=== PATIENT | female | born 1960 | race Caucasian/White ===

== ENCOUNTER → 2018-11-08 17:56 | Outpatient (CLI) | payer OTHER, SELFPAY ==
[2018-11-08 09:26] VITALS: BMI 21.9
[2018-11-15 09:16] LABS: HPV APTIMA, High Risk Negative (Negative)
--- OUTSIDE RECORDS SUMMARY | 2019-01-11 05:18 | XMS RPT_ITS ---
:1960 Author Organization [facility] Care Team Providers Name Role Phone Toshia Peters Attending Unavailable Primay Care Physicia, Nadia Referring Unavailable Toshia Peters Attending Unavailable Justino Bee Primary Care Unavailable Toshia Peters Referring Unavailable PROBLEMS PROBLEMS DATE TYPE CONDITION / CODE ATTENDING STATUS SOURCE 11/09/2018 Unknown Z12.4 - Toshia Peters Active [facility] Encounter for Community screening for Hospital malignant Repository neoplasm of cervix / Z12.4(ICD-10) PROCEDURES PROCEDURES No Procedure Records FoundRESULTS RESULTS GRADUATE ADVISOR OFFICE VISIT Observed: 11/08/2018 Status: F Source: [place] REPORT 9:57 AM [facility] REPOSITORY [facility] [address] [place] [address]. [address] [place] [address] OFFICE VISIT Date of Service: 11/08/18 MR#: [id number] Acct: [id number] Name: GEOFFREY CAIN Rep #: [id number] : 1960 Provider: WHITNEY Peters Age/Sex: 58/F Location: [facility] [place] Status: Signed Intake Vital Signs11/08/18 Height 5 ft 8 in 11/08/18 Weight: 144 lb 6 oz 11/08/18 Body Mass Index (BMI) 21.9 11/08/18 Blood Pressure 140/90 H Intake Visit Reasons: ANNUAL Records Coordinator Required: No Is patient in pain?: No Allergies povidone-iodine [From Betadine] Allergy (Mild, Verified 11/08/18 09:21) swelling soap [From Betadine] Allergy (Mild, Verified 11/08/18 09:21) swelling sulfamethoxazole [From Bactrim] Allergy (Mild, Verified 11/08/18 09:21) unknown trimethoprim [From Bactrim] Allergy (Mild, Verified 11/08/18 09:21) unknown Medications magnesium 250 mg tablet 250 mg PO DAILY 11/08/18 [History Confirmed 11/08/18] multivitamin tablet 1 tab PO DAILY 11/08/18 [History Confirmed 11/08/18] omega-3 fatty acids 1,000 mg capsule 1,000 mg PO DAILY 11/08/18 [History Confirmed 11/08/18] vitamin B12 500 mcg-folic acid 400 mcg tablet 1 tab PO DAILY 11/08/18 [History Confirmed 11/08/18] Is last menstrual period known: No Post menopausal: No Patient : No : [facility] Abnormal Pap smear of cervix (Acute) Surgical History History of colposcopy (Resolved) Family History Father Diabetes Grandmother Breast cancer Mother Alzheimer disease Social History Smoking Status: Never smoker alcohol intake: never substance use type: does not use caffeine: Yes eating out: rarely or never what type of physical activity do you participate in: walking frequency: 1-2 times per week seatbelt use: always do you feel safe at home: Yes additional social history: - 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 DateName GA/Weeks Outcome Route Bt WeighInfant GeLabor LgtAnesthesiDel LocatProvider FOB t n h a n HPI ANNUAL: Details: GEOFFREY CAIN is a 58 year old who presents for annual exam. Last exam with [place] [facility] 04/2017. Lack of libido, responds with stimulation. Step daughter and children living with them currently. Last PAP: approx 2017 History of abnormal PAP: yes approx 2007 with colp negative, no treatment Last mammogram: 2016 History of abnormal mammogram: no Colon cancer screenin and due 05/2019 ROS Const Constitutional: Denies fatigue, weight gain or weight loss Cardio Card: Denies chest pain Resp Resp: Denies cough or shortness of breath with activity GI GI: Denies abdominal pain, constipation, change in stools, vomiting or bloating : Reports as per HPI; denies urinary frequency, pelvic pain, urinary urgency, vaginal discharge, vaginal itching, urinary incontinence or difficulty urinating Exam Const General: cooperative, healthy appearing, no acute distress, well developed Orientation: alert, oriented to person, oriented to place HENWV Head: normal to inspection Neck Neck: normal visual inspection Thyroid: thyroid normal Lymphatic: no lymphadenopathy noted Chest Breast inspection: normal inspection of the breasts, normal inspection of the axillae Breast palpation: normal palpation of the breasts, normal palpation of the axillae, no axillary lymphadenopathy Resp Effort AND Inspection: normal respiratory effort GI Palpation: soft, nontender, no masses Rectal Exam: deferred External Female Exam: normal external appearance, normal appearance of the urethra Urethra: normal appearance of the urethra, normal palpation Speculum Exam - Vagina: normal appearance of the vagina, normal vaginal discharge Speculum Exam - Cervix: normal appearance of the cervix Bimanual Exam- Vagina AND Uterus: normal bimanual exam, uterine size normal, uterine shape normal, uterus non-tender Bimanual Exam- Adnexa, other: normal adnexae, no adnexal masses, adnexae non-tender, pelvic support normal Pelvic Support: normal Neuro General: alert, oriented x3 Psych Affect: normal affect Assessment AND Plan Problems 1. Encounter for gynecological examination with abnormal finding Z01.411 Plan Completed breast and pelvic exam Reviewed diet and exercise Pap thin prep pap with HPV Declines use of estrogen cream. Discussed lubricants Discussed lack of libido, feels related to extra people in house. Mammogram ordered Colonoscopy due in May 2019 Surgeons info given Bone density na RTO 1 year, prn with problems Toshia Peters PERSONAL FINANCIAL ADVISOR Coding Level of Care Code Off vis,est,prev 40-64yrs Diagnoses Encounter for gynecological examination with abnormal finding Z01.411 Gynecological examination findings: abnormal findings PRESENT 11/08/18 0957 <Electronically signed by Toshia Peters EDITORIAL MANAGER-C> Date Toshia Peters EDITORIAL MANAGER-C Cosigner Signature: Date (if applicable) CC: ALLERGIES ALLERGIES DATE TYPE / CODE NAME / CODE REACTION SEVERITY SOURCE 11/08/2018 Drug soap/[id number] Swelling [facility] Allergy/4160 012(RXNORM) Hospital 55133(SNOMED Repository CT) 11/08/2018 Drug sulfamethoxa Unknown [facility] Allergy/4160 zole/[id number] Hospital 02888(SNOMED 827(RXNORM) Repository CT) 11/08/2018 Drug trimethoprim Unknown [facility] Allergy/4160 /[id number]( Hospital 45988(SNOMED RXNORM) Repository CT) 11/08/2018 Drug povidone-iod Swelling [facility] Allergy/4160 ine/[id number] Hospital 18554(SNOMED 53(RXNORM) Repository CT) ENCOUNTERS ENCOUNTERS ADMIT/DISCHARGE ACCOUNT ADMITTING ENCOUNTER LOCATION SOURCE NUMBER CLASS 11/08/2018 [id number] Ambulatory Stephanie Bruni 8 [facility] ing:[facility]SPEC Repository 11/08/2018/ [id number] Ambulatory BMSBuilding:B Bruni 9 9 [facility] Repository PAYERS PAYERS ENCOUNTER GUARANTOR PAYER SUBSCRIBER SOURCE 11/08/2018 SCOTT Primary GEOFFREY Brown [id number] Insurance:MEDICAL DAVAULTDOB: [facility] [place] Number: Repository [id number]: [phone]) [id number] [phone] () Date:2018-11-08[address] [place] [id number]: 11/08/2018 Secondary NOT GIVENUNK Bruni Insurance:SELF PAY [facility] Number: Effective Repository Date:2018-11-08 11/08/2018 Scott Primary GEOFFREY Cintronoster [id number] Insurance:MEDICAL DAVAULTDOB: [facility] [id number] Number: Repository [id number]: [phone] [id number] [phone] () Date:2018-09-02[address], [place] [address]AG: 11/08/2018 Secondary NOT GIVENUNK Stephanie Insurance:SELF [facility]: Effective Repository Date:2018-11-08
== END ==
PROVIDERS: Family Provider Internal Medicine; Referring Provider Nurse Practitioner Women's Health; Visit Provider Nurse Practitioner Women's Health
DX: Z12.4 Encounter for screening for malignant neoplasm of cervix (principal)
CPT/HCPCS: 87624; 88175; G0145

== ENCOUNTER → 2018-12-23 15:18 | Outpatient (CLI) | payer OTHER, SELFPAY ==
[2018-11-08 09:26] VITALS: BMI 21.9
--- NOTE | 2018-12-23 15:20 | BI_ITS ---
MAMMOGRAPHY - BILATERAL SCREENING REASON FOR EXAM: Female, 58 years old. Routine annual screening examination. PERTINENT HISTORY: Grandmother with breast cancer. TECHNIQUE: Digital bilateral breast jovana (3D mammographic acquisition) in the CC and MLO projections. 2-D mediolateral oblique (MLO) and craniocaudad (CC) views of both breasts were obtained. CAD: Full Field Digital Mammography with Computer Added Detection was performed. COMPARISON: Comparison is made with prior operative examination dated January 26, 2017. FINDINGS: Breast Composition: There are scattered areas of fibroglandular density. There are no dominant masses or suspicious calcifications. No other significant abnormalities are identified. There has been no significant change since the prior study. BI/SCREENING MAMM (CAD), BILAT IMPRESSION: Stable bilateral screening mammogram. Yearly follow-up mammogram recommended. (A) ASSESSMENT CATEGORY: BIRADS Category 1: Negative. A letter regarding these results will be sent to the patient by the facility within 30 days. Approximately 10% of breast cancers are not detected by mammography. A normal mammogram should not delay biopsy of a clinically suspicious abnormality. [id number] Electronically Signed: Kareem Medina, at 8:38 EST , Service support ,
== END ==
PROVIDERS: Family Provider Internal Medicine; Visit Provider Nurse Practitioner Women's Health
DX: Z12.31 Encounter for screening mammogram for malignant neoplasm of breast (principal)
CPT/HCPCS: 77063; 77067

== ENCOUNTER 2019-11-07 08:20 | Day surgery (SDC) | payer OTHER, SELFPAY ==
[2018-11-08 09:26] VITALS: BMI 21.9
[2019-11-07 08:42] VITALS: BP 142/86; PULSE 69; RESP 14; TEMP 36.9; O2SAT 100; BMI 20.7
[2019-11-07] MEDS: Lactated Ringers 1,000 ML 100 ML IV (09:00)
--- NOTE | 2019-11-07 09:53 | HP.PCM_ITS ---
History of Present Illness Date of Admission: 11/07/19 The patient is a 59 year old F presents for screening colonoscopy due to history of colon polyps. Patient's last colonoscopy was in [address] Shaw knee she had a rectal polyp less than 5 mm at that time. Patient denies any family history of colon cancer. Denies any chronic abdominal pain/nausea/vomiting/reflux. Patient has bowel movements about every 2 days denies any blood. Past Medical/Surgical History - Planned Operation Planned Operative Procedure/s: cscope Date of Operative Procedure: 11/07/19 Permit Signed: No S.O.S: No Is This Patient Having a Total Joint: No - Previous Hospitalizations/Surgeries HX Hospitalizations: No HX of Surgeries: cscope Any Problems With Anesthesia: No You/Your Family Experience Fever (Hyperthermia) With Anes: No Cholinesterase deficiency: No - Cardiovascular Hx Chest Pain within Last 2 months: No Hx of Irregular Heartbeat and/or Afib: No Hx Heart Attack: No Hx Congestive Heart Failure: No Hx Rheumatic Fever: No Hx Hypertension: No Hx Internal Defibrillator: No Hx Pacemaker: No Hx Cardiac Catheterization: No Hx Cardiac Surgery/Stents/Etc.: No Hx Stress Test: No HX Edema: No Hx Pain in Legs when Walking/Leg Cramps: No - Respiratory Chronic Cough: No HX of Shortness of Breath: No Hoarseness: No Hx Chronic Obstructive Pulmonary Disease (COPD): No Hx Asthma: No Hx Emphysema: No Hx Sleep Apnea: No Hx Oxygen Use at Home: No Hx Respiratory Tract Infection/Cold (presently): No Do You Snore Loudly (louder than talking or can be heard): No Do You Often Feel Tired/ Fatigued/ Sleepy Dring Daytime?: Yes Has Anyone Observed You Stop Breathing During Sleep?: No Result (for STOP score): Negative Hx Smoking: No Smoking Status: Never smoker - Gastrointestinal Hx Gastroesophageal Reflux: No Hx Gastrointestinal Disorders: No Hx Gastrointestinal Bleed: No Hx Ulcer: No Hx Hiatal Hernia: No Difficulty Chewing/Swallowing: No Recent Onset of Swallowing Problems: No Special diet followed at home: No Hx Unplanned Weight Loss of 20#: No HX Unplanned Weight Gain of 20#: No - Neurological Hx Seizures: No HX Syncope/Blackout Spells/Unconsciousness: No Hx CVA/Stroke: No Hx Transient Ischemic Attacks (TIA): No Hx Multiple Sclerosis: No Hx Parkinson's Disease: No Hx Head/Neck Injury: No Hx Headaches: No Hx Back Injury/Pain: No Recent Onset of Speech Difficulty: No Restless Legs: Yes - compression hose Does patient have nerve stimulator: No Patient instructed to have device shut off: No Rep notified?: No - Blood Disorder Hx Leukemia: No Bleeding Tendencies: No Hx Deep Vein Thrombosis: No Hx High Cholesterol: No Blood Transmitted Disease: No Hx Hepatitis: No Hx Cirrhosis: No Hx Anemia: No Hx Blood Disorders: No - Reproduction : No Is Patient Lactating: No Hx Hysterectomy: No Hx Tubal Ligation: No Are You Post Menopause: Yes - Genitourinary Hx Renal Disease: No - Musculoskeletal Hx Arthritis: No Hx Rheumatoid Arthritis: No Hx Gout: No Recent Onset of an Orthopedic Problem: No - Endocrine Hx Diabetes: No Thyroid Disease: No Hx Steroid Therapy: No - Psycho/Social Hx Substance Use: No Hx Alcohol Use: No Hx Anxiety: Yes - meds in the past Hx Depression: Yes - meds in the past Mental Illness: No Hx Dementia: No - Miscellaneous Hx Cancer: No Recent Exposure to Contagious Disease: No Active MRSA: No Hx of C-Diff: No Any Loose Teeth: No Allergies povidone-iodine [From Betadine] Allergy (Mild, Verified 11/07/19 08:42) swelling soap [From Betadine] Allergy (Mild, Verified 11/07/19 08:42) swelling sulfamethoxazole [From Bactrim] Allergy (Mild, Verified 11/07/19 08:42) unknown trimethoprim [From Bactrim] Allergy (Mild, Verified 11/07/19 08:42) unknown - Discharge Is Pt Admitted From a [facility]sp, or a Senior Care: No Who Could Help: family After D/C, Where Do you Plan to Go: Return Home - Physical Exam Vitals/I&O's: Vital Signs Temp Pulse Resp BP Pulse Ox 98.4 F 69 14 142/86 H 100 11/07/19 08:42 11/07/19 08:42 11/07/19 08:42 11/07/19 08:42 11/07/19 08:42 Oxygen Delivery Method Room Air Weight: 136 lb 3.931 oz Body Mass Index (BMI) 20.7 General: Alert, Oriented x3, Cooperative, No apparent distress HEENT: Atraumatic Lungs: Normal air movement Cardiovascular: Regular rate Abdomen: Soft, Non Tender, Non-Distended Neurological: Cranial nerves II-XII grossly intact Psych/Mental Status: Normal Affect Current Medications Lactated Ringer's () 1,000 mls @ 100 mls/hr IV .Q10H DONTE Last Admin: 11/07/19 09:00 Dose: 100 mls/hr Documented by: Assessment/Plan 59-year-old female with history of colon polyp Surgery Risks - Colonoscopy I discussed with the patient the risks of the procedure: Yes Risks Include but are not Limited To: Risks include but are not limited to: Bleeding, perforation requiring further surgery, inability to complete colonoscopy requiring barium enema. No further questions this time.
[2019-11-07 10:43] VITALS: BP 121/99; BP 142/86; PULSE 58; RESP 16; TEMP 36.8; O2SAT 99
[2019-11-07 10:45] VITALS: BP 117/65; BP 142/86; PULSE 73; RESP 16; O2SAT 98
[2019-11-07 10:50] VITALS: BP 131/84; BP 142/86; PULSE 61; RESP 16; O2SAT 97
[2019-11-07 10:56] VITALS: BP 127/68; BP 142/86; PULSE 62; RESP 16; TEMP 36.3; O2SAT 98
[2019-11-07 11:21] VITALS: BP 142/86
--- NOTE | 2019-11-07 14:18 | OP.COLON_ITS ---
Patient Name: Shahla Roldan Procedure Date: 11/07/2019 10:02 AM Date of : 1960 Age: 59 Procedure: Colonoscopy Indications: High risk colon cancer surveillance: Personal history of colonic polyps Providers: Marisol Rodríguez MD Referring MD: Marisol Rodríguez MD Medicines: Monitored Anesthesia Care Patient Profile: This is a 59 year old female. Last Colonoscopy: 5 years ago. Complications: No immediate complications. Procedure: Pre-Anesthesia Assessment: - Prior to the procedure, a History and Physical was performed, and patient medications and allergies were reviewed. The patient's tolerance of previous anesthesia was also reviewed. The risks and benefits of the procedure and the sedation options and risks were discussed with the patient. All questions were answered, and informed consent was obtained. Prior Anticoagulants: The patient has taken no previous anticoagulant or antiplatelet agents. ASA Grade Assessment: II - A patient with mild systemic disease. After reviewing the risks and benefits, the patient was deemed in satisfactory condition to undergo the procedure. After I obtained informed consent, the scope was passed under direct vision. Throughout the procedure, the patient's blood pressure, pulse, and oxygen saturations were monitored continuously. The Colonoscope was introduced through the anus and advanced to the cecum, identified by appendiceal orifice and ileocecal valve. The colonoscopy was performed without difficulty. The patient tolerated the procedure well. The quality of the bowel preparation was good. Scope In: 10:13:05 AM Scope Withdrawal Time 0 hours 11 minutes 26 seconds Scope Out: 10:35:40 AM Total Procedure Duration Time 0 hours 22 minutes 35 seconds Findings: Hemorrhoids were found on perianal exam. External and internal hemorrhoids were found. The hemorrhoids were Grade I (internal hemorrhoids that do not prolapse). The entire examined colon appeared normal. Impression: - Hemorrhoids found on perianal exam. - External and internal hemorrhoids. - The entire examined colon is normal. - No specimens collected. Recommendation: - Discharge patient to home. - Resume previous diet. - Continue present medications. - Repeat colonoscopy in 10 years for screening purposes. Procedure Code(s): --- Professional --- G0105, PT, Colorectal cancer screening; colonoscopy on individual at high risk Diagnosis Code(s): --- Professional --- Z86.010, Personal history of colonic polyps K64.0, First degree hemorrhoids CPT copyright 2017 [employer]. All rights reserved. The codes documented in this report are preliminary and upon resident surgeon review may be revised to meet current compliance requirements. MD Marisol Brenner MD 11/07/2019 10:45:47 AM This report has been signed electronically. Number of Addenda: 0 Note Initiated On: 11/07/2019 10:02 AM
--- NOTE | 2019-11-07 14:19 | OP.CCLET_ITS ---
11/07/2019 No Primary Care Physician Re : Colonoscopy procedure for Shahla Roldan Dear Care Physician This procedure was performed on Thursday, November 07, 2019. My impressions and recommendations are as follows: Impressions : - Hemorrhoids found on perianal exam. - External and internal hemorrhoids. - The entire examined colon is normal. - No specimens collected. Recommendations : - Discharge patient to home. - Resume previous diet. - Continue present medications. - Repeat colonoscopy in 10 years for screening purposes. My findings are described in the full procedure note, which is enclosed. If I can be of further assistance, please feel free to contact me at Doctor phone number(s): , Work: . Sincerely, MD Marisol Brenner MD 11/07/2019 10:45:47 AM This report has been signed electronically.
== END 2019-11-07 11:23 | disposition home or self-care (01) ==
LOC: EN 08:22 → AC 08:22
PROVIDERS: Referring Provider Surgery; Visit Provider Surgery
PROC: 0DJD8ZZ Inspection of Lower Intestinal Tract, Via Natural or Artificial Opening Endoscopic (ICD-10-PCS; CPT 45378; principal; 2019-11-07 09:25)
DX: Z12.11 Encounter for screening for malignant neoplasm of colon (principal); K64.0 First degree hemorrhoids; Z86.010 Personal history of colon polyps
CPT/HCPCS: 45378; J7120; J2405

== ENCOUNTER → 2020-04-18 | Outpatient (CLI) | payer OTHER, SELFPAY ==
[2018-11-08 09:26] VITALS: BMI 21.9
--- NOTE | 2020-04-18 08:29 | BI_ITS ---
MAMMOGRAPHY - BILATERAL SCREENING REASON FOR EXAM: Female, 60 years old. Routine annual screening examination. PERTINENT HISTORY: Grandmother with breast cancer. TECHNIQUE: Digital bilateral breast teresita (3D mammographic acquisition) in the CC and MLO projections. 2-D mediolateral oblique (MLO) and craniocaudad (CC) views of both breasts were obtained. CAD: Full Field Digital Mammography with Computer Added Detection was performed. COMPARISON: Comparison is made with prior study dated December 23, 2018. FINDINGS: Breast Composition: There are scattered areas of fibroglandular density. There are no dominant masses or suspicious calcifications. No other significant abnormalities are identified. There has been no significant change since the prior study. BI/SCREEN MAMM (CAD) W/TERESITA BILAT IMPRESSION: Stable bilateral screening mammogram. Yearly follow-up mammogram recommended. (A) ASSESSMENT CATEGORY: BIRADS Category 1: Negative. A letter regarding these results will be sent to the patient by the facility within 30 days. Approximately 10% of breast cancers are not detected by mammography. A normal mammogram should not delay biopsy of a clinically suspicious abnormality. [id number] Electronically Signed: Kareem Medina, at 9:40 EDT , Service support ,
== END | disposition home or self-care (01) ==
PROVIDERS: PCP Internal Medicine; Referring Provider Nurse Practitioner Women's Health; Visit Provider Nurse Practitioner Women's Health
DX: R30.0 Dysuria (principal); Z12.31 Encounter for screening mammogram for malignant neoplasm of breast
CPT/HCPCS: 77063; 77067; 87086; 87088; 87186

== ENCOUNTER → 2021-04-23 12:29 | Outpatient (CLI) | payer OTHER, SELFPAY ==
[2020-04-18 09:11] VITALS: BMI 20.7
--- NOTE | 2021-04-23 12:32 | BI_ITS ---
MAMMOGRAPHY - BILATERAL SCREENING REASON FOR EXAM: Female, 61 years old. Routine annual screening examination. PERTINENT HISTORY: Grandmother with breast cancer. TECHNIQUE: Digital bilateral breast teresita (3D mammographic acquisition) in the CC and MLO projections. 2-D mediolateral oblique (MLO) and craniocaudad (CC) views of both breasts were obtained. CAD: Full Field Digital Mammography with Computer Added Detection was performed. COMPARISON: Comparison is made with prior study dated 04/18/2020 and 12/23/2018. FINDINGS: Breast Composition: There are scattered areas of fibroglandular density. There are no dominant masses or suspicious calcifications. No other significant abnormalities are identified. There has been no significant change since the prior study. BI/SCRN MAMM (CAD)W/TERESITA BILAT IMPRESSION: Stable bilateral screening mammogram. Yearly follow-up mammogram recommended. (A) ASSESSMENT CATEGORY: BIRADS Category 1: Negative. A letter regarding these results will be sent to the patient by the facility within 30 days. Approximately 10% of breast cancers are not detected by mammography. A normal mammogram should not delay biopsy of a clinically suspicious abnormality. [id number] Electronically Signed: Kareem Medina MD at 13:25 EDT , Service support ,
== END ==
PROVIDERS: Referring Provider Nurse Practitioner Women's Health; Visit Provider Nurse Practitioner Women's Health
DX: R35.0 Frequency of micturition (principal); Z12.31 Encounter for screening mammogram for malignant neoplasm of breast
CPT/HCPCS: 77063; 77067; 87086; 87088; 87186

== ENCOUNTER → 2022-04-29 | Outpatient (CLI) | payer OTHER, SELFPAY ==
--- NOTE | 2022-04-29 12:35 | BI_ITS ---
MAMMOGRAPHY - BILATERAL SCREENING REASON FOR EXAM: Female, 62 years old. Routine annual screening examination. PERTINENT HISTORY: Grandmother with breast cancer. TECHNIQUE: Digital bilateral breast teresita (3D mammographic acquisition) in the CC and MLO projections. 2-D mediolateral oblique (MLO) and craniocaudad (CC) views of both breasts were obtained. CAD: Full Field Digital Mammography with Computer Added Detection was performed. COMPARISON: Comparison is made with prior study dated 04/23/2021 and 04/18/2020. FINDINGS: Breast Composition: The breasts are heterogeneously dense, which may obscure small masses. There are no dominant masses or suspicious calcifications. No other significant abnormalities are identified. There has been no significant change since the prior study. BI/SCRN MAMM (CAD)W/TERESITA BILAT IMPRESSION: Stable bilateral screening mammogram. Yearly follow-up mammogram recommended. (A) ASSESSMENT CATEGORY: BIRADS Category 1: Negative. A letter regarding these results will be sent to the patient by the facility within 30 days. Approximately 10% of breast cancers are not detected by mammography. A normal mammogram should not delay biopsy of a clinically suspicious abnormality. [id number] Electronically Signed: Kareem Medina MD at 13:30 EDT ,
== END | disposition home or self-care (01) ==
LOC: OPBI 12:33
PROVIDERS: Referring Provider Nurse Practitioner Women's Health; Visit Provider Nurse Practitioner Women's Health
DX: Z12.31 Encounter for screening mammogram for malignant neoplasm of breast (principal); Z80.3 Family history of malignant neoplasm of breast
CPT/HCPCS: 77063; 77067

== ENCOUNTER → 2022-05-01 | Outpatient (CLI) | payer OTHER, SELFPAY ==
[2022-05-01 08:28] LABS: Cholesterol 189 mg/dL (200); Glucose 103 mg/dL (74-106); High Density Lipoprotein 74 mg/dL; Thyroid Stim Hormone (TSH) 1.97 uIU/mL (0.358-3.74); Triglycerides 59 mg/dL; Very Low Density Lipoprotein 12 mg/dL (5-40)
== END | disposition home or self-care (01) ==
PROVIDERS: Referring Provider Nurse Practitioner Women's Health; Visit Provider Nurse Practitioner Women's Health
DX: Z13.1 Encounter for screening for diabetes mellitus (principal); Z13.220 Encounter for screening for lipoid disorders; Z13.29 Encounter for screening for other suspected endocrine disorder; Z13.21 Encounter for screening for nutritional disorder
CPT/HCPCS: 36415; 80061; 82306; 82947; 84443

== ENCOUNTER → 2022-05-27 | Outpatient (CLI) | payer OTHER, SELFPAY | END | disposition home or self-care (01) | LOC: LABSPEC 11:07 | PROVIDERS: Visit Provider Nurse Practitioner Women's Health | DX: R30.0 Dysuria (principal) | CPT/HCPCS: 87086; 87088; 87186 ==

== ENCOUNTER → 2022-11-11 | Outpatient (CLI) | payer OTHER, SELFPAY ==
[2022-11-11 12:15] LABS: Absolute Lymphocyte Count 1.49 X10^3/uL (0.83-4.51); Absolute Neutrophil Count 2.9 X10^3/uL (2.0-7.7); Basophil# 0.04 X10^3/uL; Basophil% 0.8 % (0-1); Eosinophil# 0.06 X10^3/uL; Eosinophils% 1.2 % (0-5); Hematocrit 43.1 % (37-47); Hemoglobin 14.5 g/dL (12.0-15.0); Lymphocyte # 1.49 X10^3/ul (0.83-4.51); Lymphocyte % 29.4 % (19-41); Mean Corp Hgb Conc 33.6 g/dL (32-36); Mean Corpuscular Hgb 32.2 pg (27.0-32.0); Mean Corpuscular Volume 95.8 fL (81-99); Mean Platelet Vol. 9.1 fl (6.2-12.0); Monocyte# 0.52 X10^3/uL; Monocyte% 10.3 % (0-10); NRBC Flagged by Analyzer 0 % (0-5); Neutrophil # 2.94 X10^3/uL (2.7-7.7); Neutrophil % 58.1 % (47-70); Platelet Count 276 K/mm3 (150-450); RBC Distribution Width CV 12.1 % (11.6-14.6); RBC Distribution Width SD 42.5 fl (35.1-43.9); White Blood Count 5.1 K/mm3 (4.4-11.0)
[2022-11-11 12:50] LABS: AST(SGOT) 16 U/L (15-37); Alanine Aminotransfer ALT/SGPT 15 U/L (13-56); Albumin, Serum 3.8 g/dL (3.2-5.0); Alkaline Phosphatase 84 U/L (45-117); Anion Gap 7 (5-15); BUN 18 mg/dL (7-18); BUN/Creat Ratio 19.8 RATIO (10-20); Calcium,Total 8.9 mg/dL (8.5-10.1); Chloride 108 mmol/L (98-107); Creatinine, Serum 0.91 mg/dL (0.55-1.02); EST Glomerular Filtration Rate 66 mL/min (>60); Est Glom Filt Rate - Afr Amer 80 mL/min (>60); Globulin 3.9 g/dL (2.2-4.2); Glucose 106 mg/dL (74-106); Potassium 3.8 mmol/L (3.5-5.1); Protein, Total 7.7 g/dL (6.4-8.2); Sodium Level 141 mmol/L (136-145); Thyroid Stim Hormone (TSH) 1.84 uIU/mL (0.358-3.74)
== END | disposition home or self-care (01) ==
LOC: BIMLAB 09:52
PROVIDERS: PCP Internal Medicine; Referring Provider Internal Medicine; Visit Provider Internal Medicine
DX: F51.04 Psychophysiologic insomnia (principal)
CPT/HCPCS: 36415; 80053; 84443; 85025

== ENCOUNTER → 2022-12-23 | Outpatient (CLI) | payer OTHER, SELFPAY ==
[2022-12-23 12:35] LABS: Color, Urine Straw (Yellow); Glucose, Dipstick Normal (Normal); Ketone-Dipstick Negative (Negative); Leukocyte Esterase-Dipstick 100 /ul (Negative); Nitrite-Dipstick Negative (Negative); Occult Blood-Urine 10 /ul (Negative); Protein-Dipstick Negative (Negative); Urine Bilirubin Dipstick Negative (Negative); Urine Clarity Clear (Clear); Urine Urobilinogen Normal (Normal)
== END | disposition home or self-care (01) ==
LOC: LABSPEC 10:43
PROVIDERS: PCP Internal Medicine; Referring Provider Internal Medicine; Visit Provider Internal Medicine
DX: N39.0 Urinary tract infection, site not specified (principal)
CPT/HCPCS: 81002; 87086; 87088; 87186

== ENCOUNTER → 2023-05-04 | Outpatient (CLI) | payer OTHER, SELFPAY ==
--- NOTE | 2023-05-04 08:31 | BI_ITS ---
MAMMOGRAPHY - BILATERAL SCREENING 3-D TOMOSYNTHESIS REASON FOR EXAM: Female, 63 years old. Routine screening PERTINENT HISTORY: Grandmother with breast cancer.. TECHNIQUE: 2-D mammograms and 3-D Tomosynthesis of the breast (s) were performed. CAD was performed. COMPARISON: 04/23/2021 FINDINGS: The breast composition is heterogeneously dense that can obscure small breast masses. Scattered benign calcifications are seen. No dense spiculated masses or suspicious microcalcifications are identified. No architectural distortion is identified. There is no skin thickening or retraction. There has been no significant change since the prior study. BI/SCRN MAMM (CAD)W/TERESITA BILAT IMPRESSION: No mammographic signs of malignancy. Routine yearly mammograms recommended. ASSESSMENT CATEGORY: BIRADS Category 2: Benign. A letter regarding these results will be sent to the patient by the facility within 30 days. FOLLOW UP RECOMMENDATION: Yearly follow up mammogram recommended. (A) Approximately 10% of breast cancers are not detected by mammography. A normal mammogram should not delay biopsy of a clinically suspicious abnormality. Electronically Signed: Sergey Bass MD at 9:41 EDT ,
== END | disposition home or self-care (01) ==
LOC: OPBI 08:30
PROVIDERS: PCP Internal Medicine; Referring Provider Nurse Practitioner Women's Health; Visit Provider Nurse Practitioner Women's Health
DX: Z12.31 Encounter for screening mammogram for malignant neoplasm of breast (principal)
CPT/HCPCS: 77063; 77067

== ENCOUNTER → 2023-08-20 | Outpatient (CLI) | payer OTHER, SELFPAY ==
[2023-08-20 13:16] LABS: Bacteria 0 SEEN /hpf (None Seen); Mucous, Urine 0 SEEN /hpf (<or=2+); Red Blood Cells-Urine 0 SEEN /hpf (0-5); White Blood Cells 0 SEEN /hpf (0-5)
[2023-08-20 15:15] LABS: Color, Urine Yellow (Yellow); Glucose, Dipstick Normal (Normal); Ketone-Dipstick Negative (Negative); Leukocyte Esterase-Dipstick 25 /ul (Negative); Nitrite-Dipstick Negative (Negative); Occult Blood-Urine 10 /ul (Negative); Protein-Dipstick Negative (Negative); Urine Bilirubin Dipstick Negative (Negative); Urine Clarity Clear (Clear); Urine Urobilinogen Normal (Normal)
[2023-08-20 15:40] LABS: Squamous Epithelial Cells - UA 0-5 SEEN /hpf (5-10)
== END | disposition home or self-care (01) ==
LOC: LABSPEC 13:14
PROVIDERS: PCP Internal Medicine; Visit Provider Internal Medicine
DX: R30.0 Dysuria (principal)
CPT/HCPCS: 81001; 87086; 87088

== ENCOUNTER → 2024-05-31 | Outpatient (CLI) | payer OTHER, SELFPAY ==
--- NOTE | 2024-05-31 07:33 | BI_ITS ---
MAMMOGRAPHY - BILATERAL SCREENING REASON FOR EXAM: Female, 64 years old. Routine annual screening examination. PERTINENT HISTORY: Grandmother with breast cancer. TECHNIQUE: Digital bilateral breast teresita (3D mammographic acquisition) in the CC and MLO projections. 2-D mediolateral oblique (MLO) and craniocaudad (CC) views of both breasts were obtained. CAD: Full Field Digital Mammography with Computer Added Detection was performed. COMPARISON: Comparison is made with prior study dated May 04, 2023 and April 29, 2022. FINDINGS: Breast Composition: The breasts are heterogeneously dense, which may obscure small masses. There are no dominant masses or suspicious calcifications. No other significant abnormalities are identified. There has been no significant change since the prior study. BI/SCRN MAMM (CAD)W/TERESITA BILAT IMPRESSION: Stable bilateral screening mammogram. Yearly follow-up mammogram recommended. (A) ASSESSMENT CATEGORY: BIRADS Category 1: Negative. A letter regarding these results will be sent to the patient by the facility within 30 days. Approximately 10% of breast cancers are not detected by mammography. A normal mammogram should not delay biopsy of a clinically suspicious abnormality. [id number] Electronically Signed: Kareem Medina MD at 8:30 EDT ,
[2024-06-04 10:13] LABS: HPV APTIMA, High Risk Negative (Negative)
== END | disposition home or self-care (01) ==
PROVIDERS: PCP Internal Medicine; Referring Provider Nurse Practitioner Women's Health; Visit Provider Nurse Practitioner Women's Health
DX: Z12.31 Encounter for screening mammogram for malignant neoplasm of breast (principal); Z12.4 Encounter for screening for malignant neoplasm of cervix
CPT/HCPCS: 77063; 77067; 87624; 88175; G0145

== ENCOUNTER → 2025-06-07 | Outpatient (CLI) | payer MEDICARE, SELFPAY ==
--- NOTE | 2025-06-07 07:45 | BI_ITS ---
EXAM: SCRN MAMM (CAD)W/TERESITA BILAT DATE: 06/07/2025 CLINICAL HISTORY: F, Age 65 y/o , SCREEN FOR BREAST CANCER TECHNIQUE: SCRN MAMM (CAD)W/TERESITA BILAT COMPARISON: Prior exam(s) dated May 31, 2024.. FINDINGS: TISSUE DENSITY: The breasts are heterogeneously dense, which may obscure small masses. Bilateral Breast Mammographic Findings: No significant masses, calcifications or other abnormalities are identified. No suspicious masses, areas of developing architectural distortion, or suspicious calcifications. There has been no significant interval change. BI/SCRN MAMM (CAD)W/TERESITA BILAT IMPRESSION: Stable examination. OVERALL FINAL ASSESSMENT BI-RADS 1: NEGATIVE. RECOMMENDATION: Routine annual follow-up in 1 Year A letter with findings and recommendations will be mailed to the patient. Reading Location: [id number]
--- OUTSIDE RECORDS SUMMARY | 2025-06-07 08:03 | XMS RPT_ITS | CCD ---
Author Organization [facility] Care Team Providers Care Director Inpatient Headache Program Name Role Phone Care Physician, No Primary Primary Care Provider Unavailable Care Physician, No Primary Referring Provider Un available Fran CLOUD ADMINISTRATOR, CLOUD ADMINISTRATOR-C Toshia Attending Provider [phone] Care Physician, No Primary Primary Care Provider Unavailable Care Physician, No Primary Referring Provider Un available Dr. Pretty Montaño Attending Provider [phone] Care Physician, No Primary Primary Care Provider Unavailable Care Physician, No Primary Referring Provider Un available Dr. Pretty Montaño Attending Provider [phone] Dr. Pretty Montaño Primary Care Provider Dr. Pretty Montaño Referring Provider [phone] Dr. Pretty Montaño Primary Care Provider Dr. Pretty Montaño Referring Provider [phone] Fran CLOUD ADMINISTRATOR, WHITNEY-C Toshia Attending Provider Dr. Pretty Montaño Primary Care Provider Dr. Pretty Montaño Referring Provider [phone] Fran CLOUD ADMINISTRATOR, WHITNEY-C Toshia Attending Provider Dr. Pretty Montaño Attending Provider [phone] Chanell Harkins Attending Unavailable Pretty Montaño Primary Care Unavailable Pretty Montaño Referring Unavailable Fran CLOUD ADMINISTRATORToshia Referring Unavailable Pretty Montaño Primary Care Unavailable Fran CLOUD ADMINISTRATORToshia Attending Unavailable Allergies Allergy Classification Reported Allergen(s) Allergy Type Date of Onset Reaction(s) Facility (7 sources) Povidone-Iodine Drug Allergy 2 [facility] (7 sources) Sulfamethoxazole Drug Allergy 2 unknown [facility] (7 sources) Trimethoprim Drug Allergy 2 unknown [facility] (8 sources) soap; Translations: [soap] Allergy to substance 2 swelling [facility] (1 source) Povidone-Iodine Drug Allergy 4 [facility] (1 source) Sulfamethoxazole Drug Allergy 4 [facility] (1 source) Trimethoprim Drug Allergy 4 [facility] Medications Current Medications Medication Drug Class(es) Dates Sig (Normalized) Sig (Original) Lacto No.73-Qdccte-Hvo-La rch (Women's Probiotic) 25B cell-25B cell-50 mg capsule (4 sources) Start: 11-11-2022 take 1 capsule by mouth once daily Lacto No.28-Pudrvp-Mrq-L arch (Women's Probiotic) 25B cell-25B cell-50 mg capsule Active 1 CAP PO DAILY November 11, 2022 1:00am Start: 11-11-2022 take 1 capsule by mo [facility] once daily Lacto No.32-Tqzbhu-Wmt-Larch (Women's Probiotic) 25B cell-25B cell-50 mg capsule Active 1 CAP PO DAILY November 11, 2022 12:00am methylcellulose 500 mg oral tablet (1 source) Start: 08-20-2023 take 1 tablet by mouth once daily Methylcellulose (Laxative) (Citrucel) 500 mg tablet Active 500 MG PO DAILY August 19, 2023 11:00pm Multivitamin preparation (7 sources) Start: 11-08-2018 take 1 tablet by mouth once daily Multivitamin Active 1 TABLET PO DAILY November 08, 2018 12:00am Start: 11-08-2018 [facility] Multivitamin Active 1 TABLET PO DAILY November 08, 2018 1:00am traZODone hydrochloride 50 mg oral tablet (6 sources) Serotonin Reuptake Inhibitor Start: 11-11-2022 End: 01-28-2023 take 25 mg by mouth at bedtime Trazodone Active 25 MG PO AT BEDTIME January 28, 2023 10:14am Completed/Discontinued Medications Medication Drug Class(es) Dates Sig (Normalized) Sig (Original) cephalexin 500 mg oral capsule (4 sources) Cephalosporin Antibacterial Start: 07-09-2022 End: 07-16-2022 take 500 mg by mouth every twelve hours Cephalexin Discontinued 500 MG PO Q12H 14 7 July 08, 2022 11:00pm July 15, 2022 11:10pm folic acid 0.4 mg / vitamin b12 0.5 mg oral tablet (7 sources) Vitamin B12 Start: 11-08-2018 End: 04-23-2021 take 1 tablet by mouth once daily Vitamin D05-Cdplg Acid Discontinued 1 TABLET PO DAILY November 08, 2018 12:00am April 23, 2021 12:05pm Ginkgo Biloba (14 sources) Start: 04-29-2022 End: 11-11-2022 take 40 mg by mouth once daily Ginkgo Biloba Discontinued 40 MG PO DAILY April 29, 2022 12:00am November 11, 2022 10:05am give with meal/snack Start: 04-29-2022 End: 11-11-2022 take 40 mg by mouth once daily Ginkgo Biloba Discontin ued 40 MG PO DAILY April 28, 2022 11:00pm November 11, 2022 9:05am give with meal/snack Start: 04-29-2022 take 40 mg by mouth once daily Ginkgo Biloba Active 40 MG PO DAILY April 29, 2022 12:00am give with meal/snack Start: 11-02-2019 End: 04-23-2021 take 500 mg by mouth once daily Ginkgo Biloba Discontinued 500 MG PO DAILY November 02, 2019 12:00am April 23, 2021 12:05pm Start: 11-02-2019 End: 04-23-2021 take 500 mg by mouth once daily Ginkgo Biloba Discontinued 500 MG PO DAILY November 02, 2019 1:00am April 23, 2021 1:05pm hydrOXYzine pamoate 50 mg oral capsule (7 sources) Antihistamine Start: 04-29-2022 End: 11-11-2022 take 50 mg by mouth at bedtime Hydroxyzine Pamoate Discontinued 50 MG PO AT BEDTIME April 28, 2022 11:00pm November 11, 2022 9:05am nitrofurantoin, macrocrystals 100 mg oral capsule (5 sources) Nitrofuran Antibacterial Start: 05-27-2022 End: 06-03-2022 take 100 mg by mouth twice daily at mealtime Nitrofurantoin Macrocrystal Discontinued 100 MG PO TWICE A DAY 14 7 May 26, 2022 11:00pm June 02, 2022 11:04pm administer with food (meal or snack) nitrofurantoin, macrocrystals 25 mg / nitrofurantoin, monohydrate 75 mg oral capsule (17 sources) Nitrofuran Antibacterial Start: 12-23-2022 End: 12-28-2022 take 1 capsule by mouth every twelve hours at mealtime Nitrofurantoin Monohyd/M-Cryst (Macrobid) 100 mg capsule Discontinued 100 MG PO Q12H 10 December 23, 2022 12:00am December 28, 2022 12:04am must administer with a meal/food Start: 04-23-2021 End: 04-30-2021 take 1 capsule by mouth twice daily at mealtime Nitrofurantoin Monohyd/M-Cryst (Macrobid) 100 mg capsule Discontinued 100 MG PO TWICE A DAY 14 7 April 22, 2021 11:00pm April 29, 2021 11:01pm must administer with a meal/food Start: 04-18-2020 End: 04-25-2020 take 1 capsule by mouth twice daily at mealtime Nitrofurantoin Monohyd/M-Cryst (Macrobid) 100 mg capsule Discontinued 100 MG PO TWICE A DAY 14 April 17, 2020 11:00pm April 24, 2020 11:02pm must administer with a meal/food prasterone 25 mg oral capsule (7 sources) Start: 11-02-2019 End: 04-18-2020 take 25 mg by mouth once daily Prasterone (Dhea) Discontinued 25 MG PO DAILY November 02, 2019 12:00am April 18, 2020 8:10am RHODIOLA ROSEA EXTRACT (4 sources) Start: 11-11-2022 End: 08-20-2023 RHODIOLA ROSEA EXTRACT Discontinued PO DAILY November 11, 2022 12:00am August 20, 2023 12:01pm Start: 11-11-2022 RHODIOLA ROSEA EXTRACT Active PO DAILY November 11, 2022 1:00am Start: 11-11-2022 RHODIOLA ROSEA EXTRACT Active PO DAILY November 11, 2022 12:00am Vit V-Rdlvchiz-Iix-Calcium-D 3 (7 sources) Start: 04-23-2021 End: 06-25-2023 Vit C-Dkaqrwjs-Qch-Calcium-D 3 Discontinued EACH PO April 22, 2021 11:00pm June 25, 2023 7:53am Start: 04-23-2021 Vit C-Multivit -Zdv-Ehkrbjo-R7 Active EACH PO April 22, 2021 11:00pm Start: 04-23-2021 Vit C-Multivit -Lby-Agvahlg-Z3 Active EACH PO April 23, 2021 12:00am Problems Problem Classification Problem Date Documented Da te Episodic/Chronic Administrative/social admission (2 sources) Persons encountering health services in other specified circumstances; Translations: [Other reasons for seeking consultation] 11-11-2022 Episodic Anxiety disorders (14 sources) Anxiety; Translations: [Anxiety disorder, unspecified] Chronic Genitourinary symptoms and ill-defined conditions (1 source) Dysuria; Translations: [Dysuria] 08-20-2023 Episodic Immunizations and screening for infectious disease (2 sources) Encounter for immunization; Translations: [Need for prophylactic vaccination and inoculation against unspecified single disease] 11-11-2022 Episodic Menopausal disorders (10 sources) Atrophic vaginitis; Translations: [Postmenopausal atrophic vaginitis] Chronic Miscellaneous mental health disorders (4 sources) Psychophysiologic insomnia; Translations: [Insomnia, unspecified] 11-11-2022 Chronic Mood disorders (4 sources) Mild depression; Translations: [Depression with somatization] 11-11-2022 Chronic Other gastrointestinal disorders (1 source) Constipation, unspecified; Translations: [Constipation, unspecified] 08-20-2023 Episodic Other screening for suspected conditions (not mental disorders or infectious disease) (1 source) Encounter for screening mammogram for malignant neoplasm of breast; Translations: [Encounter for screening mammogram for malignant neoplasm of breast] Onset: Episodic Residual codes; unclassified (1 source) Family history of epilepsy and other diseases of the nervous system; Translations: [Family history of other neurological diseases] 06-25-2023 Episodic Urinary tract infections (4 sources) Urinary tract infection, site not specified; Translations: [Urinary tract infection, site not specified] Episodic Results Test Name Value Interpretation Reference Range Facility [facility] Office Visit Reporton 07-04-2024 [facility] Office Visit Report [facility] [address] [place] [address], [address] [place] [address] OFFICE VISIT Date of Service: 07/04/24 MR#: [id number] Acct: [id number] Name: GEOFFREY CAIN Rep #: [id number] : 1960 Provider: Dr. Chanell weaver MD Age/Sex: 64/F Location[place] [facility] [place] Status: Signed Intake Vital Signs 05/31/24 08:02 07/04/24 08:56 Height 5 ft 8 in 5 ft 8 in Weight: 149 lb BMI 22.6 BP 144/82 H Intake Visit Reasons: 4 W FU Behavior Interventionist Required: No Is patient in pain?: No Allergies povidone-iodine (From Betadine) Allergy (Mild, Verified 07/04/24 09:00) swelling soap (From Betadine) Allergy (Mild, Verified 07/04/24 09:00) swelling sulfamethoxazole (From Bactrim) Allergy (Mild, Verified 07/04/24 09:00) unknown trimethoprim (From Bactrim) Allergy (Mild, Verified 07/04/24 09:00) unknown Medications ???Medication ???Instructions ???Recorded ???Confirmed ???Type multivitamin 1 tab PO DAILY 11/08/18 07/04/24 History estradiol 0.01% (0.1 mg/gram) See Rx Instructions vaginal 05/31/24 07/04/24 Rx vaginal cream .COMPLEX #42.5 grams psyllium husk 0.4 gram capsule 0.4 g PO DAILY 05/31/24 07/04/24 History (Fiber (psyllium husk)) citalopram 20 mg tablet 20 mg PO DAILY #30 tabs 07/04/24 07/04/24 Rx Patient : No : No PFSH Medical History Recurrent UTI Skin carcinoma Abnormal Pap smear of cervix Surgical History Surgical procedure on lower extremity within past 6 months History of colposcopy Family History Father Diabetes Grandmother Breast cancer Mother Alzheimer disease Diabetes Sister Diabetes Social History household members: spouse current occupational status: retired 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 she has had an improvement in symptoms but still has breakthrough, but she was only taking 10 mg. she is open to increasing. she is takign it at night, no side effects. she denies any side effects of the estradiol, has less dryness. History 4 Elective abortions Hx Para 4 Spontaneous abortions Hx # Term Pregnancies Ectopic pregnancies Hx # Pregnancies Multiple births # of living children Past Pregnancies Del. Date Name GA/Weeks Outcome Route Bth Weight Gen [facility] F[facility] Unknown Gregorio-1985 Unknown Waldemar-1987 Unknown [id number] Unknown Armando-1993 ROS Const Constitutional: Denies fatigue, fever(s), headache(s), increased appetite, poor appetite, weight gain or weight loss GI GI: Reports as per HPI; Denies abdominal pain, constipation, nausea or vomiting : Reports as per HPI Exam Const General: cooperative, healthy appearing, comfortable, no acute distress and well developed Orientation: alert HENMT Head: normal to inspection and normocephalic Ears: hearing grossly normal bilaterally and external ears normal Nose: external nose normal and nares normal Face and sinus: normal facial exam Neck Neck: normal visual inspection, no lymphadenopathy and trachea midline Thyroid: thyroid normal Resp Effort Inspection: normal respiratory effort Musc Other: gross motor intact no deficits, full bilateral strength Skin General: no rashes or lesions noted Neuro Motor: muscle tone normal throughout Coding Level of Care Code Off vis,est,level 3 Diagnoses Anxiety F41.9 Atrophic vaginitis N95.2 Assessment and Plan Assessment and Plan (1) Anxiety: Status: Acute Comment: celexa (2) Atrophic vaginitis: Status: Acute Comment: estradiol cream Medications: New citalopram 20 mg PO DAILY 30 tabs 12RF Plan increased to 20 mg Problem list updated and treatment plans were reviewed with the patient and relevant educational handouts given. See problem list details for specific plan information. 07/04/24918 Date Chanell Mcgregor Signature: Date (if applicable) CC: Normal [facility] Basophil percentageOrdered B y: Pretty Montaño on 08-20-2023 Basophil percentage 0 SEEN /hpf 0-5 [facility] Bilirubin Test strip Ql (U)O rdered By: Pretty Montaño on 08-20-2023 Bilirubin Ql (U) Negative Negative [facility] Culture, urineOrdered By: Juan R Montaño on 08-20-2023 Bacteria identified Cx Nom (U) Positive [facility] Ketones Test strip Ql (U)Ord ered By: Pretty Montaño on 08-20-2023 Ketones Ql (U) Negative Negative [facility] Mucus LM Ql (Urine sed)Order ed By: Pretty Montaño on 08-20-2023 Mucus Ql (Urine sed) 0 SEEN /hpf [facility] Nitrite Test strip Ql (U)Ord ered By: Pretty Montaño on 08-20-2023 Nitrite Ql (U) Negative Negative [facility] Protein Test strip Ql (U)Ord ered By: Pretty Montaño on 08-20-2023 Protein Ql (U) Negative Negative [facility] Squamous epithelial cells de tection in urine sediment by light microscopyOrdered By: Pretty Montaño on 08-20-2023 Epithelial cells.squamous LM Ql (Urine sed) 0-5 SEEN /hpf 5-10 [facility] Urine blood detectionOrdered By: Pretty Montaño on 08-20-2023 RBC Ql (U) 10 /ul Negative [facility] RBC Ql (U) 0 SEEN /hpf 0-5 [facility] Urine clarityOrdered By: Jose Montaño on 08-20-2023 Clarity (U) Clear Clear [facility] Urine color determinationOrd ered By: Pretty Montaño on 08-20-2023 Color (U) Yellow Yellow [facility] Urine glucose detectionOrder ed By: Pretty Montaño on 08-20-2023 Glucose Ql (U) Normal mg/dl Normal [facility] Urine leukocyte esterase det ection by dipstickOrdered By: Pretty Montaño on 08-20-2023 Leukocyte esterase Test strip Ql (U) 25 /ul Negative [facility] Urine pHOrdered By: Pretty ricks on 08-20-2023 pH (U) 6.0 [pH] 5.0 - 8.0 [facility] Urine sediment bacteria coun t by microscopy (number/high power field)Ordered By: Pretty Montaño on 08-20-2023 Bacteria LM.HPF (Urine sed) [#/Area] 0 /[HPF] None Seen [facility] Urine specific gravity measu rementOrdered By: Pretty Montaño on 08-20-2023 Specific gravity (U) [Rel density] 1.010 1.002-1.030 [facility] Urobilinogen Auto test strip Ql (U)Ordered By: Pretty Montaño on 08-20-2023 Urobilinogen Ql (U) Normal mg/dl Normal [facility] Culture, urineOrdered By: Dr Jose Montaño on 12-25-2022 Bacteria identified Cx Nom (U) Presumptive E. coli [facility] Bilirubin Test strip Ql (U)O rdered By: Dr. Montaño on 12-23-2022 Bilirubin Ql (U) Negative Negative [facility] Ketones Test strip Ql (U)Ord ered By: Dr. Montaño on 12-23-2022 Ketones Ql (U) Negative Negative [facility] Laboratory - Chemistry and C hemistry - challengeon 12-23-2022 Bilirubin Ql (U) Negative [facility] Glucose Ql (U) Negative [facility] Ketones Ql (U) Negative [facility] pH (U) 5.0 [pH] [facility] Specific gravity (U) [Rel density] 1.005 [facility] Urobilinogen (U) [Mass/Vol] Negative [facility] Laboratory - Hematology and Cell countson 12-23-2022 Hemoglobin Ql (U) Trace [facility] Laboratory - Specimen inform ationon 12-23-2022 Clarity (U) Clear [facility] Color (U) Colorless [facility] Laboratory - Urinalysison Nitrite Ql (U) Negative [facility] Protein Ql (U) Negative [facility] Nitrite Test strip Ql (U)Ord ered By: Dr. Montaño on 12-23-2022 Nitrite Ql (U) Negative Negative [facility] No Panel Informationon 12-23 Urine Leukocytes Positive [facility] Urine Non-Hemolyzed Blood Trace [facility] Protein Test strip Ql (U)Ord ered By: Dr. Montaño on 12-23-2022 Protein Ql (U) Negative Negative [facility] Urine blood detectionOrdered By: Dr. Montaño on 12-23-2022 RBC Ql (U) 10 /ul Negative [facility] Urine clarityOrdered By: Dr. Montaño on 12-23-2022 Clarity (U) Clear Clear [facility] Urine color determinationOrd ered By: Dr. Montaño on 12-23-2022 Color (U) Straw Yellow [facility] Urine glucose detectionOrder ed By: Dr. Montaño on 12-23-2022 Glucose Ql (U) Normal mg/dl Normal [facility] Urine leukocyte esterase det ection by dipstickOrdered By: Dr. Montaño on 12-23-2022 Leukocyte esterase Test strip Ql (U) 100 /ul Negative [facility] Urine pHOrdered By: Dr. Marilynn valdes on 12-23-2022 pH (U) 7.0 [pH] 5.0 - 8.0 [facility] Urine specific gravity measu rementOrdered By: Dr. Montaño on 12-23-2022 Specific gravity (U) [Rel density] 1.010 1.002-1.030 [facility] Urobilinogen Auto test strip Ql (U)Ordered By: Dr. Montaño on 12-23-2022 Urobilinogen Ql (U) Normal mg/dl Normal [facility] Absolute lymphocyte countOrd ered By: Dr. Montaño on 11-11-2022 Lymphocytes Auto (Unsp spec) [#/Vol] 1.49 10*3/uL 0.83-4.51 [facility] Basophil percentageOrdered B y: Dr. Montaño on 11-11-2022 Basophils/100 WBC (Bld) 0.8 % 0-1 [facility] Bilirubin [Mass/Vol] 1.20 mg/dL 0.20-1.00 [facility] Comment on above: For patients on eltr ombopag therapy, use of Dimension Aguilar TBIL is not recommended. Chloride [Moles/Vol] 108 mmol/L 98-107 [facility] Eosinophils/100 WBC (Bld) 1.2 % 0-5 [facility] Glucose [Mass/Vol] 106 mg/dL 74-106 [facility] Comment on above: Fasting Glucose resu lt from 100 to 125 mg/dL suggests IMPAIRED HOMEOSTASIS per A.D.A. criteria. Neutrophils (Bld) [#/Vol] 2.9 10*3/uL 2.0-7.7 [facility] Neutrophils/100 WBC (Bld) 58.1 % 47-70 [facility] Potassium [Moles/Vol] 3.8 mmol/L 3.5-5.1 [facility] Protein [Mass/Vol] 7.7 g/dL 6.4-8.2 [facility] Sodium [Moles/Vol] 141 mmol/L 136-145 [facility] WBC (Bld) [#/Vol] 5.1 10*3/uL 4.4-11.0 [facility] Blood erythrocytes count (nu mber/volume)Ordered By: Dr. Montaño on 11-11-2022 RBC (Bld) [#/Vol] 4.50 10*6/uL 4.2-5.4 [facility] Blood hemoglobin measurement (mass/volume)Ordered By: Dr. Montaño on 11-11-2022 Hemoglobin (Bld) [Mass/Vol] 14.5 g/dL 12.0-15.0 [facility] Blood lymphocytes/100 leukoc ytesOrdered By: Dr. Montaño on 11-11-2022 Lymphocytes/100 WBC (Bld) 29.4 % 19-41 [facility] Blood monocytes/100 leukocyt esOrdered By: Dr. Montaño on 11-11-2022 Monocytes/100 WBC (Bld) 10.3 % 0-10 [facility] Blood platelet mean volumeOr dered By: Dr. Montaño on 11-11-2022 Platelet mean volume (Bld) [Entitic vol] 9.1 fL 6.2-12.0 [facility] Determination of erythrocyte mean corpuscular volume (MCV)Ordered By: Dr. Montaño on 11-11-2022 MCV (RBC) [Entitic vol] 95.8 fL 81-99 [facility] Hematocrit Auto (Bld) [Volum e fraction]Ordered By: Dr. Montñao on 11-11-2022 Hematocrit (Bld) [Volume fraction] 43.1 % 37-47 [facility] Laboratory - Chemistry and C hemistry - challengeOrdered By: Dr. Montaño on 11-11-2022 ALP [Catalytic activity/Vol] 84 U/L 45-117 [facility] ALT [Catalytic activity/Vol] 15 U/L 13-56 [facility] CO2 [Moles/Vol] 26.0 mmol/L 21.0-32.0 [facility] Globulin (S) [Mass/Vol] 3.9 g/dL 2.2-4.2 [facility] Urea nitrogen/Creatinine [Mass ratio] 19.8 mg/mg 10-20 [facility] Laboratory - Hematology and Cell countsOrdered By: Dr. Montaño on 11-11-2022 Erythrocyte distribution width (RBC) [Entitic vol] 42.5 fL 35.1-43.9 [facility] Erythrocyte distribution width (RBC) [Ratio] 12.1 % 11.6-14.6 [facility] Immature granulocytes/100 WBC (Bld) 0.200 % 0.0-0.9 [facility] Comment on above: IG% - Immature Granu locytes (promyelocytes, myelocytes and metamyelocytes) > 1% indicates that a LEFT SHIFT is Present. MCH (RBC) [Entitic mass] 32.2 pg 27.0-32.0 [facility] Nucleated RBC/100 WBC (Bld) [Ratio] 0 % 0-5 [facility] MCHC Auto (RBC) [Mass/Vol]Or dered By: Dr. Montaño on 11-11-2022 MCHC (RBC) [Mass/Vol] 33.6 g/dL 32-36 [facility] No Panel InformationOrdered By: Dr. Montaño on 11-11-2022 Estimated GFR (MDRD) Amer 80 mL/min >60 [facility] Comment on above: GFR Calc Estimated GFR (MDRD) Non-Af Amer 66 mL/min >60 [facility] Comment on above: Non- GFR Calc Thyroid Stimulating Hormone (TSH) 1.84 uIU/mL 0.358-3.74 [facility] Platelets bldOrdered By: Dr. Montaño on 11-11-2022 Platelets (Bld) [#/Vol] 276 10*3/uL 150-450 [facility] Serum or plasma albumin mai urement (mass/volume)Ordered By: Dr. Montaño on 11-11-2022 Albumin [Mass/Vol] 3.8 g/dL 3.2-5.0 [facility] Serum or plasma albumin/glob ulin mass ratioOrdered By: Dr. Montaño on 11-11-2022 Albumin/Globulin [Mass ratio] 1.0 {ratio} 0.9-2.4 [facility] Serum or plasma calcium mai urement (mass/volume)Ordered By: Dr. Montaño on 11-11-2022 Calcium [Mass/Vol] 8.9 mg/dL 8.5-10.1 [facility] Serum or plasma creatinine m easurement (mass/volume)Ordered By: Dr. Montaño on 11-11-2022 Creatinine [Mass/Vol] 0.91 mg/dL 0.55-1.02 [facility] Comment on above: The validity of the calculated GFR & GFRAA in patients over 70 years has not been determined. Clinical correlation is essential. Serum or plasma urea nitroge n measurement (mass/volume)Ordered By: Dr. Montaño on 11-11-2022 Urea nitrogen [Mass/Vol] 18 mg/dL 7-18 [facility] Thin prep Papanicolaou smear with manual screeningOrdered By: Dr. Montaño on 11-11-2022 Thin prep Papanicolaou smear with manual screening 16 U/L 15-37 [facility] Thin prep Papanicolaou smear with manual screening 7 5-15 [facility] Laboratory - Chemistry and C hemistry - challengeon 05-27-2022 Bilirubin Ql (U) Negative [facility] Work Phone: Glucose Ql (U) Negative [facility] Work Phone: Ketones Ql (U) Negative [facility] Work Phone: pH (U) 5.0 [pH] [facility] Work Phone: Specific gravity (U) [Rel density] 1.005 [facility] Work Phone: Urobilinogen (U) [Mass/Vol] 0.9893040 mg/dL [facility] Work Phone: Laboratory - Hematology and Cell countson 05-27-2022 Hemoglobin Ql (U) Moderate [facility] Work Phone: Laboratory - Specimen inform ationon 05-27-2022 Clarity (U) Clear [facility] Work Phone: Color (U) Yellow [facility] Work Phone: Laboratory - Urinalysison Nitrite Ql (U) Negative [facility] Work Phone: Protein Ql (U) Negative [facility] Work Phone: No Panel Informationon 05-27 Urine Leukocytes Positive [facility] Work Phone: Basophil percentageon 2021 Cholesterol [Mass/Vol] 189 mg/dL <200 [facility] Work Phone: Comment on above: <200 mg/dL Desirable 200-240 mg/dL Borderline >240 mg/dL High Risk Glucose [Mass/Vol] 103 mg/dL 74-106 [facility] Work Phone: Comment on above: Fasting Glucose resu lt from 100 to 125 mg/dL suggests IMPAIRED HOMEOSTASIS per A.D.A. criteria. Triglyceride [Mass/Vol] 59 mg/dL <199 [facility] Work Phone: Comment on above: The drugs N-Acetylcy steine and Metamizole may falsely depress this assay.Serum Triglycerides Reference Interval Normal <150 mg/dL Borderline high 150 - 199 mg/dL High 200 - 499 mg/dL Very High > or = 500 mg/dL No Panel Informationon 05-01 Thyroid Stimulating Hormone (TSH) 1.97 uIU/mL 0.358-3.74 [facility] Work Phone: Vitamin D 25-Hydroxy 40.0 ng/mL [facility] Work Phone: Comment on above: Vitamin D 25(OH) Sta tus Range Deficiency <20 ng/mL (50nmol/L) Insufficiency 20 - 30 ng/mL (50 - 75 nmol/L) Sufficiency 30 - 100 ng/mL (75 - 250 nmol/L) Toxicity >100 ng/mL (>250 nmol/L) Serum or plasma cholesterol in HDL measurement (mass/volume)on 05-01-2022 Cholesterol in HDL [Mass/Vol] 74 mg/dL >40 [facility] Work Phone: Comment on above: The drugs N-Acetylcy steine and Metamizole may falsely depress this assay. Reference Range HDL <40 mg/dL Low HDL Cholesterol HDL >or= 60 mg/dL High HDL Cholesterol Serum or plasma cholesterol in VLDL measurement (mass/volume)on 05-01-2022 Cholesterol in VLDL [Mass/Vol] 12 mg/dL 5-40 [facility] Work Phone: Serum or plasma low density lipoprotein (LDL) cholesterol measurement (mass/volume)on 05-01-2022 Cholesterol in LDL [Mass/Vol] 103 mg/dL 0-130 [facility] Work Phone: Culture, urine Bacteria identified Cx Nom (U) Presumptive E. coli [facility] Work Phone: Vital Signs Date Time Vital Sign Value Performing Clinician Faci lity 08-20-2023 12:59-0400 Body height 172.[address] Pretty Montaño Work Phone: [facility] 08-20-2023 12:59-0400 Body mass index (BMI) [Ratio] 22 kg/m2 Dr. Pretty Montaño Work Phone: [facility] 08-20-2023 12:59-0400 Body temperature 97.1 [degF] Dr. Pretty Montaño Work Phone: [facility] 08-20-2023 12:59-0400 Body weight 65.[address] Pretty Montaño Work Phone: [facility] 08-20-2023 12:59-0400 Diastolic blood pressure 82 mm[Hg] Dr. Pretty Montaño Work Phone: [facility] 08-20-2023 12:59-0400 Heart rate 67 /min Dr. Pretty Montaño Work Phone: [facility] 08-20-2023 12:59-0400 SaO2% (BldA) [Mass fraction] 98 % Dr. Pretty Montaño Work Phone: [facility] 08-20-2023 12:59-0400 Systolic blood pressure 124 mm[Hg] Dr. Pretty Montaño Work Phone: [facility] 06-25-2023 09:39-0400 Diastolic blood pressure 84 mm[Hg] Dr. Pretty Montaño Work Phone: [facility] 06-25-2023 09:39-0400 Systolic blood pressure 136 mm[Hg] Dr. Pretty Montaño Work Phone: [facility] 06-25-2023 08:54-0400 Body mass index (BMI) [Ratio] 21.9 kg/m2 Dr. Pretty Montaño Work Phone: [facility] 06-25-2023 08:54-0400 Body temperature 97.2 [degF] Dr. Pretty Montaño Work Phone: [facility] 06-25-2023 08:54-0400 Body weight 65.[address] Pretty Montaño Work Phone: [facility] 06-25-2023 08:54-0400 Heart rate 71 /min Dr. Pretty Montaño Work Phone: [facility] 06-25-2023 08:54-0400 Respiratory rate 18 /min Dr. Pretty Montaño Work Phone: [facility] 06-25-2023 08:54-0400 SaO2% (BldA) [Mass fraction] 96 % Dr. Pretty Montaño Work Phone: [facility] 05-04-2023 09:19-0400 Body height 172.[address] Pretty Montaño Work Phone: [facility] 05-04-2023 09:15-0400 Body mass index (BMI) [Ratio] 21.9 kg/m2 Dr. Pretty Montaño Work Phone: [facility] 05-04-2023 09:15-0400 Body weight 65.[address] Pretty Montaño Work Phone: [facility] 05-04-2023 09:15-0400 Diastolic blood pressure 72 mm[Hg] Dr. Pretty Montaño Work Phone: [facility] 05-04-2023 09:15-0400 Systolic blood pressure 116 mm[Hg] Dr. Pretty Montaño Work Phone: [facility] 12-23-2022 09:22-0500 Body height 172.72 cm No Primary Care Physician [facility] 12-23-2022 09:22-0500 Body mass index (BMI) [Ratio] 22 kg/m2 No Primary Care Physician [facility] 12-23-2022 09:22-0500 Body temperature 97.6 [degF] No Primary Care Physician [facility] 12-23-2022 09:22-0500 Body weight 65.77 kg No Primary Care Physician [facility] 12-23-2022 09:22-0500 Diastolic blood pressure 72 mm[Hg] No Primary Care Physician [facility] 12-23-2022 09:22-0500 Heart rate 70 /min No Primary Care Physician [facility] 12-23-2022 09:22-0500 Respiratory rate 16 /min No Primary Care Physician [facility] 12-23-2022 09:22-0500 SaO2% (BldA) [Mass fraction] 99 % No Primary Care Physician [facility] 12-23-2022 09:22-0500 Systolic blood pressure 108 mm[Hg] No Primary Care Physician [facility] 11-11-2022 09:12-0500 Body height 172.72 cm No Primary Care Physician [facility] 11-11-2022 09:12-0500 Body mass index (BMI) [Ratio] 21.4 kg/m2 No Primary Care Physician [facility] 11-11-2022 09:12-0500 Body temperature 98.6 [degF] No Primary Care Physician [facility] 11-11-2022 09:12-0500 Body weight 63.95 kg No Primary Care Physician [facility] 11-11-2022 09:12-0500 Diastolic blood pressure 80 mm[Hg] No Primary Care Physician [facility] 11-11-2022 09:12-0500 Heart rate 69 /min No Primary Care Physician [facility] 11-11-2022 09:12-0500 Respiratory rate 16 /min No Primary Care Physician [facility] 11-11-2022 09:12-0500 SaO2% (BldA) [Mass fraction] 99 % No Primary Care Physician [facility] 11-11-2022 09:12-0500 Systolic blood pressure 132 mm[Hg] No Primary Care Physician [facility] 05-27-2022 09:30-0400 Body height 172.72 cm No Primary Care Physician [facility] Work Phone: 05-27-2022 09:30-0400 Body mass index (BMI) [Ratio] 22.6 kg/m2 No Primary Care Physician [facility] Work Phone: 05-27-2022 09:30-0400 Body weight 67.58 kg No Primary Care Physician [facility] Work Phone: 04-29-2022 13:14-0400 Body height 172.72 cm No Primary Care Physician [facility] Work Phone: 04-29-2022 13:14-0400 Body mass index (BMI) [Ratio] 22.6 kg/m2 No Primary Care Physician [facility] Work Phone: 04-29-2022 13:14-0400 Body weight 67.58 kg No Primary Care Physician [facility] Work Phone: 04-29-2022 13:14-0400 Diastolic blood pressure 78 mm[Hg] No Primary Care Physician [facility] Work Phone: 04-29-2022 13:14-0400 Systolic blood pressure 106 mm[Hg] No Primary Care Physician [facility] Work Phone: Encounters Encounter Date Encounter Type Care Provider Facility Start: 06-07-2025 ambulatory Toshia Peters NP Facil ity:[facility] Start: 07-04-2024 End: 07-04-2024 ambulatory Chanell Harkins Facility[place] Start: 08-20-2023 End: 08-20-[address] Pretty Montaño Work Phone: [facility] Work Phone: Start: 08-20-2023 End: 08-20-[address] Pretty Montaño Work Phone: [facility] Work Phone: Start: 06-25-2023 End: 06-25-[address] Pretty Montaño Work Phone: [facility] Work Phone: Start: 05-04-2023 End: 05-04-[address] Pretty Montaño Work Phone: [facility] Work Phone: Start: 05-04-2023 End: 05-04-[address] Pretty Montaño Work Phone: [facility] Work Phone: Start: 12-23-2022 End: 12-23-2022 ambulatory No Primary Care Physician [facility] Work Phone: Start: 12-23-2022 End: 12-23-2022 Patient encounter procedure No Primary Care Physician [facility] Start: 12-23-2022 End: 12-23-2022 Patient encounter procedure No Primary Care Physician [facility] Start: 11-11-2022 End: 11-11-2022 ambulatory No Primary Care Physician [facility] Work Phone: Start: 11-11-2022 End: 11-11-2022 Patient encounter procedure No Primary Care Physician [facility] Start: 11-11-2022 End: 11-11-2022 Patient encounter procedure No Primary Care Physician [facility] Start: 05-27-2022 End: 05-27-2022 Patient encounter procedure No Primary Care Physician [facility] Start: 05-27-2022 End: 05-27-2022 Patient encounter procedure No Primary Care Physician [facility] Start: 05-01-2022 End: 05-01-2022 Patient encounter procedure No Primary Care Physician [facility] Start: 04-29-2022 End: 04-29-2022 Patient encounter procedure No Primary Care Physician [facility] Procedures Date Procedure Procedure Detail Performing Clinician Start: 08-20-[address] Scott Montaño Work Phone: Start: 05-04-2023 Screening mammography Jacques Montaño Work Phone: Start: 04-29-2022 Screening mammography N o Primary Care Physician Urine culture No Primary Car e Physician Urine culture No Primary Car e Physician Plan of Treatment Date Care Activity Detail Author CBC W Auto Differential panel - Blood [facility] Lipid 1996 panel - Serum or Plasma [facility] Immunizations Immunization Date Immunization Notes Care Provider Con espinoza 05-18-[address] Pretty Montaño Work Phone: [facility] 01-01-[address] Pretty Montaño Work Phone: [facility] 11-11-2022 tetanus toxoid, redu ashlyn diphtheria toxoid, and acellular pertussis vaccine, adsorbed No Primary Care Physician [facility] 01-11-2021 Covid (Moderna) No Primary C are Physician [facility] 12-14-2020 Covid (Moderna) No Primary C are Physician [facility] Payers Date Payer Category Payer Self-pay [id number] 2024 Private Health Insurance [id number] Unknown SELF PAY INSURANCE [id number] Unknown [facility] [id number] Unknown [facility] [id number] Unknown [id number] Unknown [id number] Social History Date Type Detail Facility Start: 04-29-2022 End: 08-20-2023 Tobacco smoking status NHIS Unknown if ever smoked [facility] Start: 11-02-2019 Non-smoker [facility] Start: 1960 Sex Assigned At Female [facility] Chief complaint+Reason for visit Narrative Note Date & Type Note Facility Chief complaint+Reason for visit Narrative Reason for Visit Immunization due Mild anxiety Establishing care with new doctor, encounter for Chronic insomnia Recurrent UTI Mild depression [facility] Work Phone: Chief complaint+Reason for visit Narrative Note Date & Type Note Facility Chief complaint+Reason for visit Narrative Reason for Visit Immunization due Mild anxiety Establishing care with new doctor, encounter for Chronic insomnia Recurrent UTI Mild depression Mild anxiety Chronic insomnia Recurrent UTI Mild depression [facility] Work Phone: Evaluation note Note Date & Type Note Facility Evaluation note Diagnosis Onset Date Anxiety acute Atrophic vaginitis acute Encounter for routine gyneco logical examination noneactive [facility] Work Phone: Evaluation note Note Date & Type Note Facility Evaluation note Diagnosis Onset Date Anxiety acute Atrophic vaginitis acute Encounter for routine gyneco logical examination noneactive UTI (urinary tract infection) noneactive [facility] Work Phone: Evaluation note Note Date & Type Note Facility Evaluation note Diagnosis Onset Date Immunization due noneactive Mild anxiety noneactive Establishing care with new d octor, encounter for noneactive Chronic insomnia noneactive Recurrent UTI noneactive Mild depression noneactive [facility] Work Phone: Evaluation note Note Date & Type Note Facility Evaluation note Diagnosis Onset Date Immunization due noneactive Mild anxiety noneactive Establishing care with new d octor, encounter for noneactive Chronic insomnia noneactive Recurrent UTI noneactive Mild depression noneactive Mild anxiety noneactive Chronic insomnia noneactive Recurrent UTI noneactive Mild depression noneactive [facility] Work Phone: Evaluation note Note Date & Type Note Facility Evaluation note Diagnosis Onset Date Encounter for routine gyneco logical examination noneactive [facility] Work Phone: Evaluation note Note Date & Type Note Facility Evaluation note Diagnosis Onset Date Encounter for routine gyneco logical examination noneactive Mild anxiety noneactive Chronic insomnia noneactive Family history of Alzheimer's disease noneactive Mild depression noneactive Dysuria noneactive Constipation noneactive [facility] Work Phone: Chief Complaint and Reason for Visit Chief Complaint 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) Reason for Visit Anxiety Atrophic vaginitis Encounter for routine gynecological examination Chief Complaint 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) uti DYSURIA Reason for Visit Anxiety Atrophic vaginitis Encounter for routine gynecological examination UTI (urinary tract infection) Chief Complaint 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) Reason 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 Visit Encounter for routin e gynecological examination Chief Complaint 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) 6 M FU possible uti Reason for Visit Encounter for routin e gynecological examination Mild anxiety Chronic insomnia Family history of Alzheimer's disease Mild depression Dysuria Constipation Family History No Family History Records Found Relationship Condition Age at Onset Recorded Date/T kaylan father Diabetes mellitus Unknown grandmother Malignant neoplasm of breast Unknown mother Alzheimer's disease Unknown Relationship Condition Age at Onset Recorded Date/T kaylan father Diabetes mellitus Unknown grandmother Malignant neoplasm of breast Unknown mother Alzheimer's disease Unknown Diabetes mellitus Unknown sister Diabetes mellitus Unknown Advance Directives No Advanced Directives Records Found Advance Directive Response Recorded Date/ Time Living Will No November 02 4:56pm Power of Insurance Claims Clerk No November 02, 2019 4:56pm Advance Directive Response Recorded Date/ Time Living Will No November 02 3:56pm Power of Insurance Claims Clerk No November 02, 2019 3:56pm Summary Purpose Additional Source Comments Goals (unrecognized section and content) Goals may be documented in a n alternate sectionGoals may be documented in an alternate sectionGoals may be documented in an alternate sectionGoals may be documented in an alternate sectionGoals may be documented in an alternate sectionGoals may be documented in an alternate section Care Teams (unrecognized sec tion and content) Team Status: Active Member Role Status Dates No Primary Care Physician Family Provider Active Dr. Pretty Montaño MD Primary Care Provider Active Team Status: Inactive Member Role Status Dates No Primary Care Physician Primary Care Provider, Refer ring Provider Active Dr. Pretty Montaño MD Attending Provider Active Team Status: Inactive Member Role Status Dates Dr. Pretty Montaño MD Primary Care Pro vider, Attending Provider, Referring Provider Active Team Status: Inactive Member Role Status Dates Dr. Pretty Montaño MD Primary Care Provider, Referri ng Provider Active Toshia Peters CLOUD ADMINISTRATOR, CLOUD ADMINISTRATOR-C Attending Provider Active Team Status: Inactive Member Role Status Dates Toshia Peters CLOUD ADMINISTRATOR, CLOUD ADMINISTRATOR-C Attending Provider, Referring Provider Active Dr. Pretty Montaño MD Primary Care Provider Active Team Status: Inactive Member Role Status Dates Dr. Pretty Montaño MD Primary Care Provider, Attendi ng Provider Active INFORMATION SOURCE (unrecogn ized section and content) DATE CREATED AUTHOR 06/06/2025 [facility] FOR RECORDS PERTAINING TO PATIENTS WHO ARE OR HAVE BEEN ENROLLED IN A CHEMICAL DEPENDENCY/SUBSTANCEABUSE PROGRAM, SOME INFORMATION MAY BE OMITTED. This clinical summary was aggregated from multiple sources. Caution should be exercised in using it in the provision of clinical care. This summary normalizes information from multiple sources, and as a consequence, information in this document may materially change the coding, format and clinical context of patient data. In addition, data may be omitted in some cases. CLINICAL DECISIONS SHOULD BE BASED ON THE PRIMARY CLINICAL RECORDS. [facility] provides no warranty or guarantee of the accuracy or completeness of information in this document.
== END | disposition home or self-care (01) ==
LOC: OPBI 07:41
PROVIDERS: PCP Internal Medicine; Referring Provider Nurse Practitioner Women's Health; Visit Provider Nurse Practitioner Women's Health
DX: Z12.31 Encounter for screening mammogram for malignant neoplasm of breast (principal)
CPT/HCPCS: 77063; 77067